=== PATIENT | female | born 1965 | race Caucasian/White ===

== ENCOUNTER → 2018-01-08 | Outpatient (CLI) | payer BC, OTHER ==
[~2018-01-08] MED LIST: LEVO100T7 PO; MESA1.2T PO; MULT-506 PO; ZOLP5TAB PO
== END | disposition home or self-care (01) ==
LOC: C.MAMM 08:30
PROVIDERS: ATTEND Internal Medicine Gastroenterology
DX: Z79.52 Long term (current) use of systemic steroids (principal)